=== PATIENT | female | born 1990 | race Hispanic/Latino ===

== ENCOUNTER 2020-01-23 22:12 | Emergency (ER) | payer BC, SELFPAY ==
[2020-01-23] MEDS ORDERED: traMADol HCl 50 MG TAB ONE (22:52)
[2020-01-23] MEDS ORDERED: Ondansetron ODT 4 MG TAB ONE (22:52)
== END 2020-01-23 23:00 | disposition home or self-care (01) ==
LOC: ERS 22:12
DX: M54.5 Low back pain (principal); R05 Cough
CPT/HCPCS: 99283; Q0162